=== PATIENT | male | born 1960 | race Caucasian/White ===

== ENCOUNTER 2017-05-31 02:24 | Emergency (ER) | payer MEDICAID, OTHER ==
[~2017-05-31] VITALS: Ht 177.8 cm; Wt 161.5 kg
[~2017-05-31 02:24] MED LIST: ASPIRIN325 MG ORAL; LOSARTAN POTASS50 MG PO
--- NOTE | 2017-05-31 03:25 | Emergency Room Report ---
History of Present Illness General Chief Complaint: Chest Pain Source: Patient Present Illness HPI 56YOM walk-in with chest pain/abd pain radiating to back associated with nausea w/out vomiting Sharp pain, 8/10 Started today Progressive worse Known HTN. Took Norvasc, losartan Known atrial fib on Elliquis Had previously, was here 2 years ago. Was told "its just gas." Denies other medical/surgical problems Denies smoking, ETOH, drug use Allergies: Coded Allergies: No Known Allergies (Unverified , 02/08/13) Patient History Past Medical History: HTN Past Surgical History: none Pertinent Family History: none Social History: Denies: smoking, alcohol use, drug use Immunizations: UTD Reviewed Nursing Documentation: PMH: Agreed, PSxH: Agreed Nursing Documentation-PMH Hx Cardiac Problems: Yes Hx Hypertension: Yes Review of Systems All Other Systems: negative except mentioned in HPI Physical Exam Vital Signs Date Time Temp Pulse Resp B/P (MAP) Pulse Ox O2 Delivery O2 Flow Rate FiO2 05/31/17 02:56 97.2 91 16 178/107 100 Room Air Sp02 EP Interpretation: reviewed General Appearance: normal inspection, well appearing, no apparent distress, alert, GCS 15, non-toxic, obese, other - Pale Eyes: bilateral eye PERRL, bilateral eye EOMI ENT: normal ENT inspection, hearing grossly normal, normal voice Neck: normal inspection, full range of motion, supple, no bony tend Respiratory: normal inspection, lungs clear, normal breath sounds, no respiratory distress, no retraction, no wheezing Cardiovascular #1: regular rate, rhythm, no edema Gastrointestinal: normal inspection, normal bowel sounds, non tender, soft, no guarding, no hernia Genitourinary: no CVA tenderness Musculoskeletal: normal inspection, back normal, normal range of motion, Yenny' s Sign negative Neurologic: normal inspection, alert, oriented x3, responsive, speech normal Psychiatric: normal inspection, judgement/insight normal, mood/affect normal Skin: normal inspection, normal color, no rash Lymphatic: normal inspection Medical Decision Making Diagnostic Impression: Primary Impression: Chest pain Qualified Codes: R07.9 - Chest pain, unspecified Additional Impressions: Hypertension Qualified Codes: I10 - Essential (primary) hypertension JOHNATHAN (acute kidney injury) Hyperglycemia ER Course patient with uncontrolled HTN and chest pain radiating to back Concern for dissection, AAA Unable to give IV Labateolol because medication is on backorder Hydralazine given instead and analgesia with marginal improvement on BP Labs show mild JOHNATHAN, ?new onset DM I tried to get CT to r/o dissection here but patient exceeds weight limit of our table for CT We called [facility] who would accept patient for CT but all ambulance companies giving us wait time of 6-8 hours for transport, then changed their mind because they wouldnt accept patient's [employer] insurance I had multiple discussions with patient that we are unable to rule out dangerous causes of his chest pain, including dissection, here at [facility] and unable to transfer him in timely manner He decided to leave against medical advice and drive himself to [facility] to get the CT and additional evaluation/management as needed he was given copy of lab results and I wrote instructions for ED providers on his DC paperwork EKG Diagnostic Results Rate: other - Atrial fib Rhythm: other - Atrial fib ST Segments: no acute changes ASA given to the pt in ED: No Rhythm Strip Diag. Results EP Interpretation: yes Rate: 86 Rhythm: no PVC's, no ectopy Last Vital Signs Date Time Temp Pulse Resp B/P (MAP) Pulse Ox O2 Delivery O2 Flow Rate FiO2 05/31/17 03:05 91 16 Room Air 05/31/17 02:56 97.2 178/107 100 Status: improved Disposition: AGAINST MEDICAL ADVICE Condition: Serious NED HUGGINS M.D. May 31, 2017 03:25
[2017-05-31 03:34] LABS: BASOPHILS % (AUTO) 0.5 % (0.0-2.0); EOSINOPHILS % (AUTO) 0.6 % (0.0-3.0); LYMPHOCYTES % (AUTO) 12.8 % (20.0-45.0); MEAN CORPUSCULAR HEMOGLOBIN 30.4 PG (27.0-31.0); MEAN CORPUSCULAR HGB CONC 32.6 G/DL (32.0-36.0); MEAN CORPUSCULAR VOLUME 93 FL (80-99); MEAN PLATELET VOLUME 6.4 FL (6.5-10.1); MONOCYTES % (AUTO) 3.4 % (1.0-10.0); NEUTROPHILS % (AUTO) 82.7 % (45.0-75.0); PLATELET COUNT 180 K/UL (150-450); RED BLOOD COUNT 5.06 M/UL (4.70-6.10); WHITE BLOOD COUNT 8.9 K/UL (4.8-10.8)
[2017-05-31 04:01] LABS: ALBUMIN/GLOBULIN RATIO 1.6 (1.0-2.7); CALCIUM 9.6 mg/dL (8.6-10.2); CREATININE 1.4 mg/dL (0.7-1.2); GLOMERULAR FILTRATION RATE 52.6 mL/min (>60); POTASSIUM 3.9 mEQ/L (3.4-4.9); TOTAL PROTEIN 7.6 g/dL (6.6-8.7)
[2017-05-31 04:03] LABS: TROPONIN I < 0.30 ng/mL (<=0.30)
[2017-05-31 04:11] LABS: CKMB 2.2 ng/mL (< 6.7)
[2017-05-31 04:18] VITALS: BP 144/99
[2017-05-31] MEDS ORDERED: Morphine Sulfate 2mg/ml Inj IVP ONE (05:15)
[2017-05-31 05:55] VITALS: BP 170/111
[2017-05-31 06:17] VITALS: BP 170/111
--- NOTE | 2017-05-31 11:22 | Diagnostic Imaging Report ---
Indication: Chest pain Comparison: 02/08/13 A single view chest radiograph was obtained. Findings: Interstitial edema is likely present, mild in degree. Heart is enlarged. Pulmonary vascularity is also prominent. Bones are unremarkable. Impression: Mild CHF/interstitial edema suspected.
--- NOTE | 2017-06-01 15:53 | Cardiology Report ---
APPROVED REPORT EKG Measurement Heart [id number] Atrial fibrillation with premature ventricular or aberrantly conducted complexes Incomplete right bundle branch block Abnormal ECG
== END 2017-05-31 06:30 | disposition left against medical advice (07) ==
LOC: EMR 03:00
DX: R07.9 Chest pain, unspecified (principal); N17.9 Acute kidney failure, unspecified; R73.9 Hyperglycemia, unspecified; Z79.01 Long term (current) use of anticoagulants; E66.9 Obesity, unspecified; Z68.43 Body mass index [BMI] 50.0-59.9, adult; I48.91 Unspecified atrial fibrillation; I11.0 Hypertensive heart disease with heart failure; I50.9 Heart failure, unspecified
CPT/HCPCS: 36415; 71010; 80053; 82550; 82553; 84484; 85025; 93005; 96374; 96375; 99284; J0360; J2270; J2405